=== PATIENT | female | born 2000 | race Caucasian/White ===

== ENCOUNTER 2022-08-10 13:53 | Outpatient (RCR) | payer BC, SELFPAY ==
[2022-08-07 14:30] LABS: Beta HCG Quantitative 53.19 mIU/ML
[2022-08-10 16:13] LABS: Beta HCG Quantitative 217.21 mIU/ML
== END 2022-11-05 23:59 | disposition home or self-care (01) ==
LOC: ANHLAB 13:53
PROVIDERS: Visit Provider Obstetrics & Gynecology
DX: Z36.89 Encounter for other specified antenatal screening (principal); O20.0 Threatened abortion; O36.0130 Maternal care for anti-D [Rh] antibodies, third trimester, not applicable or unspecified; Z3A.00 Weeks of gestation of pregnancy not specified
CPT/HCPCS: 36415; 84702; 85461; 86850; 86900; 86901

== ENCOUNTER 2023-11-27 13:54 | Emergency (ER) | payer BC, SELFPAY ==
[2023-11-27 14:02] VITALS: BP 128/84; PULSE 75; RESP 16; TEMP 37; O2SAT 100
--- NOTE | 2023-11-27 15:25 | ED.GENADULT ---
HPI - General Adult General Chief complaint: Upper Respiratory Infection Stated complaint: Headache/Sore Throat Source: patient Mode of arrival: ambulatory Limitations: no limitations History of Present Illness HPI narrative: Pt presents for evaluation of headache and sore throat. She states she has experienced a sore throat for two months. She visualized what she thought to be tonsil stones present. No recent sick contacts to her knowledge. She has not taken any medications to assist with her symptoms. She denies fever, chills, nausea, vomiting, cough or SOB. Over the past week she has experienced a headache between the parietal regions of her head. She states pain is constant, rated between 4-7/10. She cannot provide me with a descriptive term to the pain. She has not tried any therapies to assist with her symptoms. Denies any neurological symptoms. Related Data Allergies Allergy/AdvReac Type Severity Reaction Status Date / Time No Known Allergies Allergy Verified 11/27/23 14:35 Review of Systems Review of Systems: CONSTITUTIONAL: Denies fever, chills, or sweats. EYES: Denies visual changes, redness, or discharge. ENT: Reports sore throat. Denies rhinorrhea, congestion, or otalgia. CARDIOVASCULAR: Denies chest pain, palpitations, or edema. RESPIRATORY: Denies cough or dyspnea. GASTROINTESTINAL: Denies abdominal pain, nausea, vomiting, or diarrhea. GENITOURINARY: Denies dysuria or hematuria. SKIN: Denies rash or itching. MUSCULOSKELETAL: Denies back pain, joint pain, or myalgia. NEUROLOGIC:Reports headache. Denies numbness, dizziness, or weakness. PSYCHIATRIC: Denies anxiety or depression. [facility] Past Medical History Medical History No pertinent past medical history Surgical History Surgical History No pertinent past surgical history Family History Family History Mother Family history non-contributory Social History Social History Smoking status: Never smoker Substance use: never Living arrangements: with family Gender identity (if verbalized by the patient): Female Sexual Orientation (if Verbalized by the Patient): Straight or Heterosexual Spiritual care concerns: No Exam Narrative: GENERAL: Well-appearing, well-nourished, and in no acute distress. HEAD: Normocephalic, atraumatic. EYES: PERRLA and EOMI. ENT: Nares clear, no rhinorrhea or epistaxis. Mucous membranes moist. Oropharynx without tonsillar hypertrophy exudate or other lesions. Bilateral TMs pearly multani nonbulging NECK: Supple. No adenopathy or masses. No carotid bruits or JVD CHEST: Clear to auscultation. No respiratory distress. No wheezes rales or rhonchi HEART: Regular rate and rhythm. No murmur heard. Normal peripheral pulses. ABDOMEN: Soft, nontender, nondistended, normal active bowel sounds. EXTREMITIES: Normal range of motion. No edema. SKIN: Warm, dry, no rash. NEURO: No focal deficits. Alert and oriented x3. PSYCH: Normal mood and affect. Course Course Emergency Course: This is a 23-year-old female who presented for evaluation of headache and sore throat. COVID, influenza, strep were all negative. After to check her for mono. She declined. Through shared decision making, opted to proceed with abx therapy. Increase hydration. She is neurologically intact on exam. Declined therapy for headache. Advised she follow up with PCP to determine whether neuro imaging or other further workup necessary. Go to the ER for worsening symptoms. Pt in agreement with plan of care. Level of Care: Express Care Visit Vital Signs Vital signs: Vital Signs Temperature 37.0 C 11/27/23 14:02 Pulse Rate 75 11/27/23 14:02 Respiratory Rate 16 11/27/23 14:02 Blood Pressur
== END 2023-11-27 15:25 | disposition home or self-care (01) ==
PROVIDERS: Emergency Provider Nurse Practitioner
DX: J02.9 Acute pharyngitis, unspecified (principal); R51.9 Headache, unspecified; Z20.822 Contact with and (suspected) exposure to COVID-19
CPT/HCPCS: 87081; 87426; 87804; 87880; 99213; G0463

== ENCOUNTER 2025-07-13 13:46 | Emergency (ER) | payer SELFPAY ==
--- OUTSIDE RECORDS SUMMARY | 2025-07-13 13:49 | XMS_ITS | Clinical Summary ---
Author Organization [facility] [place] [address] Address [address] [place] [address] Care Team Providers Care Weight Shifter Name Role Phone No, Physician Unavailable No, Physician Primary Care Provider [phone] Allergies Active Allergy Reactions Criticality Noted Date Comments Nickel Medications ondansetron (ZOFRAN) 4 mg tablet Take 1 tablet (4 mg total) by mouth every 6 (six) hours. 12 tablet 8 Active Additional Information Patient not taking.Reported on 04/02/2025 VENTOLIN HFA 90 mcg/actuation inhaler TAKE 2 PUFFS BY MOUTH EVERY 4 HOURS NEEDED 3 8 Active ibuprofen (ibuprofen) 200 mg tab/cap Take by mouth every 6 (six) hours as needed for pain. Active ketorolac (TORADOL) 10 mg tablet Take 1 tablet (10 mg total) by mouth every 6 (six) hours as needed for pain 20 tablet 5 Active albuterol HFA (PROVENTIL HFA,VENTOLIN HFA,PROAIR HFA) 90 mcg/actuation inhalerIndicatio ns:Dyspnea, unspecified type Inhale 2 puffs every 4 (four) hours as needed for wheezing or shortness of breath 1 each 4 Active Additional Information Patient not taking.Reported on 04/02/2025 Active Problems Problem Noted Date Diagnosed Date Acne 06/30/2018 Gastroesophageal reflux disease 06/30/2018 Mild intermittent asthma 06/30/2018 Astigmatism of both eyes 06/23/2017 Exophoria 02/27/2016 Chronic daily headache 02/27/2016 Migraine headache 02/12/2016 Chest pain 02/07/2013 Bilateral hip pain 02/28/2010 Immunizations Immunization Administration Dates Next Due DTP 04/25/2003, 1,1999,10/13,1999 HPV, Unspecified 06/29/2013,04/25/2013 Hep A, Pediatric 11/20/2004 Hep B, Adolescent or Pediatric 05/20/2000,1999,1999 Hib (PRP-T) 05/06/2001, 0,1999,06/25 IPV 04/25/2003, 0,1999,06/25 Influenza, Unspecified 06/29/2013,2012,07/28/2011,06/28,09/08/2006,09/07/2003 MMR 04/25/2003,01/05/2001 Meningococcal Polysaccharide (Menomune) 05/21/2010 Pneumococcal Conjugate 7-Valent 05/06/2001,01/06 Tdap 02/11/2023,05/21/2010 Varicella 12/08/2006,01/05/2001 Surgical History Surgery Date Site/Laterality Comments MUSCLE BIOPSY Medical History Medical History Date Comments Asthma Gastric reflux Migraines Family History Medical History Relation Name Comments Arthritis Neg Hx Diabetes Neg Hx Heart disease Neg Hx Hypertension Neg Hx Lung disease Neg Hx Stroke Neg Hx Social History Tobacco Use Types Packs/Day Years Used Date Smoking Tobacco: Never Smokeless Tobacco: Never Alcohol Use Standard Drinks/Week Comments No 0 (1 standard drink = 0.6 oz pur e alcohol) Personal Safety Answer Date Recorded Have you ever been in or are you currently in a harmful physical or emotional relationship or is someone making you feel afraid or unsafe? Denies 04/05/2025 Comments No Sex and Gender Information Value Date Recorded Sex Assigned at Not on file Legal Sex Female 9:22 AM [employer] Gender Identity Not on file Sexual Orientation Not on file Obstetrics History Last Filed Vital Signs Vital Sign Reading Time Taken Comments Blood Pressure 135/82 04/05/2025 2:26 PM CDT Pulse 79 04/05/2025 2:26 PM CDT Temperature 37 C (98.6 F) 04/05/2025 2:26 PM CDT Respiratory Rate 18 04/05/2025 2:26 PM CDT Oxygen Saturation 100% 04/05/2025 2:26 PM CDT Inhaled Oxygen Concentration - - Weight 75.3 kg (166 lb) 04/05/2025 2:26 PM CDT Height 175.3 cm (5' 9) 04/05/2025 2:26 PM CDT Body Mass Index 24.51 04/05/2025 2:26 PM CDT Plan of Treatment Health Maintenance Due Date Last Done Comments Cervical Cancer Screening 1999 Depression Screening 1999 Hepatitis C Screening 1999 HPV Vaccines (3 - 2-dose series) 10/26/2013 06/29/2013, 04/25/2013 Regular Well Visit/Exam 18-64 2017 Influenza Vaccine (#1) 2025 3, 09/29/2012, 07/28/2011, Additional history exists Pneumococcal vaccine <65 (1 of 1 - PPSV23, PCV20, or PCV21) 09/07/2025 05/06/2001, 01/06/2001 Postponed from 2005 (Patient declined, but will receive in the future) DTaP/Tdap/Td Vaccine (8 - Td or Tdap) 02/11/2033 02/11/2023, 05/21/2010, 04/25/2003, Additional history exists Hepatitis B Screening Completed 05/20/2000 , 1999, 1999 Varicella Vaccines Completed 12/08/2006, 01/05/2001 Insurance [employer] [facility] PPO Care Teams Weight Shifter Relationship Specialty Start Date End Date No, Physician PCP - General 04/05/25 No, Physician 05/14/24
--- OUTSIDE RECORDS SUMMARY | 2025-07-13 13:49 | XMS_ITS | Data Portability ---
Author Organization [facility] Address [address] [address] Assessment Encounter Date Assessment Date Assessment LastModified by Organization Details LastModified Time 11/02/2022 11/02/2022 Patient is ___weeks . Discussed plan. Not available 11/02/2022 11:25:18 12/02/2022 12/02/2022 Patient is _20__weeks . Discussed plan. [email or web address] Not available 12/02/2022 15:44:30 12/30/2022 12/30/2022 Patient is 24___weeks . Discussed plan. Not available 12/30/2022 18:00:49 01/27/2023 01/27/2023 Patient is __28_weeks . Discussed plan. [email or web address] Not available 01/27/2023 16:34:21 Plan of Treatment Reminders Order Date Submit Date Provider Last Modified By Organization Details Last Modified Time Details Appointments None recorded. Lab afp (alpha-feto protein) panel, maternal screen, serum 2022 023 [facility] (Lab), [address], [place], [address], 3 17:34:14 Referral None recorded. Procedures None recorded. Surgeries None recorded. Imaging US, obstetric, 2nd or 3rd trimester 2022 023 [email or web address] [place], [address], [address], [place], [address], 3 00:14:40 US, obstetric, transvagina l 2022 023 [email or web address] [place], [address], [address], [place], [address], 3 00:14:40 Medication Orders None recorded. Patient TargetsNo targets recorded. Patient InstructionsNo instructions recorded. Reason for Referral None Reported. Results Created Date Observation Date Name Description Value Unit Range Abnormal Flag Note LastModifiedBy Organization Detail LastModifiedTime 10/07/19 23 10/07/2022 CBC W/DIF F WBC 8.8 10'3/ uL 3.6-10 .2 Not Available [facility] (Lab) [address], [place], [address], 10/08/2022 14:46:49 10/07/19 23 10/07/2022 CBC W/DIF F RBC 3.86 10'6/ uL (based on docume nted legal sex) 4.10-5 .30 low Not Available [facility] (Lab) [address], [place], [address], 10/08/2022 14:46:49 10/07/19 23 10/07/2022 CBC W/DIF F HGB 12.2 g/dL (based on docume nted legal sex) 11.9-1 5.8 Not Available [facility] (Lab) [address] [place], [address], 10/08/2022 14:46:49 10/07/19 23 10/07/2022 CBC W/DIF F HCT 34.9 % (based on docume nted legal sex) 37.4-4 8.3 low Not Available [facility] (Lab) [address] [place], [address], 10/08/2022 14:46:49 10/07/19 23 10/07/2022 CBC W/DIF F MCV 90.4 fL 82.0-9 9.0 Not Available [facility] (Lab) [address] [place], [address], 10/08/2022 14:46:49 10/07/19 23 10/07/2022 CBC W/DIF F MCH 31.6 pg 27.0-3 3.0 Not Available [facility] (Lab) [address], [place], [address], 10/08/2022 14:46:49 10/07/19 23 10/07/2022 CBC W/DIF F MCHC 35.0 g/dL 32.0-3 6.0 Not Available [facility] (Lab) [address], [place], [address], 10/08/2022 14:46:49 10/07/19 23 10/07/2022 CBC W/DIF F RDW 12.8 % 11.0-1 5.0 Not Available [facility] (Lab) [address], [place], [address], 10/08/2022 14:46:49 10/07/19 23 10/07/2022 CBC W/DIF F plt 255 10'3/ uL 150-45 0 Not Available [facility] (Lab) [address], [place], [address], 10/08/2022 14:46:49 10/07/19 23 10/07/2022 CBC W/DIF F MPV 10.7 fL 9.8-12 .7 Not Available [facility] (Lab) [address], [place], [address], 10/08/2022 14:46:49 10/07/19 23 10/07/2022 CBC W/DIF F NRBC's 0.0 % 0 Not Available [facility] (Lab) [address], [place], [address], 10/08/2022 14:46:49 10/07/19 23 10/07/2022 CBC W/DIF F absolute NRBCs 0.0 10'3/ uL 0 Not Available [facility] (Lab) [address] [facility], [place], [address], 10/08/2022 14:46:49 10/07/19 23 10/07/2022 CBC W/DIF F neutrophils 71.8 % 37.0-7 2.0 Not Available [facility] (Lab) [address] [facility], [place], [address], 10/08/2022 14:46:49 10/07/19 23 10/07/2022 CBC W/DIF F lymphocytes 21.7 % 16.0-4 8.0 Not Available [facility] (Lab) [address] [facility], [place], [address], 10/08/2022 14:46:49 10/07/19 23 10/07/2022 CBC W/DIF F monocytes 4.9 % 4.0-14 .0 Not Available [facility] (Lab) [address] [facility], [place], [address], 10/08/2022 14:46:49 10/07/19 23 10/07/2022 CBC W/DIF F eosinophils 0.5 % 0.0-9. 0 Not Available [facility] (Lab) [address] [facility], [place], [address], 10/08/2022 14:46:49 10/07/19 23 10/07/2022 CBC W/DIF F basophils 0.9 % 0.0-2. 0 Not Available [facility] (Lab) [address] [facility], [place], [address], 10/08/2022 14:46:49 10/07/19 23 10/07/2022 CBC W/DIF F immature granulocytes 0.2 % no define d refere nce range Not Available [facility] (Lab) [address] [facility], [place], [address], 10/08/2022 14:46:49 10/07/19 23 10/07/2022 CBC W/DIF F absolute neutrophils 6.3 10'3/ uL 1.1-6. 0 high Not Available [facility] (Lab) [address] [facility], [place], [address], 10/08/2022 14:46:49 10/07/19 23 10/07/2022 CBC W/DIF F absolute lymphocytes 1.9 10'3/ uL 0.7-3. 4 Not Available [facility] (Lab) [address] [facility], [place], [address], 10/08/2022 14:46:49 10/07/19 23 10/07/2022 CBC W/DIF F absolute monocytes 0.4 10'3/ uL 0.3-1. 0 Not Available [facility] (Lab) [address] [facility], [place], [address], 10/08/2022 14:46:49 10/07/19 23 10/07/2022 CBC W/DIF F absolute eosinophils 0.0 10'3/ uL 0.0-0. 6 Not Available [facility] (Lab) [address] [facility], [place], [address], 10/08/2022 14:46:49 10/07/19 23 10/07/2022 CBC W/DIF F absolute basophils 0.1 10'3/ uL 0.0-0. 1 Not Available [facility] (Lab) [address] [facility], [place], [address], 10/08/2022 14:46:49 10/07/19 23 10/07/2022 CBC W/DIF F absolute immature granulocytes 0.0 10'3/ uL 0.00-0 .10 2022 1:45 AM: P indic ates parti al resul ts on a panel have been relea sed. Addit ional resul ts will follo w. 2022 1:45 AM: This resul t has been final verif ied. No addit ional or valdivia ed resul ts are expec chelo. Not Available [facility] (Lab) [address] [facility], [place], [address], 10/08/2022 14:46:49 10/07/19 23 10/07/2022 HEMOG LOBIN A1C hemoglobin A1C 5.1 % 0-5.6 The Ameri can Diabe darren Assoc iatio n recom mends that a prima ry goal of thera py shoul d be a HBA1C of < 7% and that physi cians shoul d reeva luate the treat ment regim en in patie nts with HBA1C value s consi stent ly > 8%. <5.7% Erlinda l 5.7 - 6.4% Incre ased risk for diabe darren >=6.5 % Diagn ostic of diabe darren <7.0% Goal of thera py >8.0% Actio n sugge sted Not Available [facility] (Lab) [address] [facility], [place], [address], 10/08/2022 14:46:49 10/07/1910/07/2022 HIV 1/2 ANTIG EN/AN TIBOD Y, REFLE X CONFI RMATI ON HIV antigen/anti body Nonrea ctive nonrea ctive HIV-1 antig en and HIV-1 /HIV- 2 antib odies were not detec chelo. No labor atory evide nce of HIV infec tion. Not Available [facility] (Lab) [address] [place], [address], 10/08/2022 14:46:50 10/07/1910/07/2022 HEPAT ITIS B SURFA CE ANTIG EN hepatitis B surface antigen Non-re active non-re active This assay was perfo rmed using [employer] [facility] [facility] [employer] ratio n reage nts and test kits. Value s obtai dina with other assay metho ds or kits canno t be used inter valdivia eably . Not Available [facility] (Lab) [address] [facility], [place], [address], 10/08/2022 14:46:50 10/07/19 23 10/07/2022 HEPAT ITIS C ANTIB TOVA SCREE N, REFLE X TO CONFI RMATI ON hepatitis C antibody Non-re active non-re active Antib odies to HCV Not Detec chelo, does not exclu de the possi bilit y of expos ure to HCV. Not Available [facility] (Lab) [address], [place], [address], 10/08/2022 14:46:51 10/07/19 23 10/07/2022 TYPE/ RH/SC REEN ABO/Rh type O POS Not Available [facility] (Lab) [address], [place], [address], 10/08/2022 14:46:51 10/07/19 23 10/07/2022 TYPE/ RH/SC REEN antibody screen NEG Not Available [facility] (Lab) [address], [place], [address], 10/08/2022 14:46:51 10/07/19 23 10/07/2022 TYPE/ RH/SC REEN exp date 2022 23:59 Not Available [facility] (Lab) [address] [facility], [place], [address], 10/08/2022 14:46:51 10/07/19 23 10/07/2022 TSH, REFLE X FREE T4 TSH 2.19 uIU/m L 0.30-5 .33 Not Available [facility] (Lab) [address] [facility], [place], [address], 10/08/2022 14:46:52 10/07/19 23 10/07/2022 RUBEL LA IGG ANTIB TOVA, QUANT rubella antibodies, IgG Reacti ve reacti ve Not Available [facility] (Lab) [address] [facility], [place], [address], 10/08/2022 14:46:52 10/07/19 23 10/07/2022 RUBEL LA IGG ANTIB TOVA, QUANT rubella antibodies, IgG quant 18.8 IU/mL >=10 Non-r eacti ve (Non- Immun e) <10 IU/mL React rubin (Immu ne) > or = 10 IU/mL Not Available [facility] (Lab) [address] [facility], [place], [address], 10/08/2022 14:46:52 10/07/19 23 10/07/2022 RPR SCREE N/REF ADONAY TITER /FTA RPR screen Nonrea ctive nonrea ctive Not Available [facility] (Lab) [address] [facility], [place], [address], 10/08/2022 14:46:53 11/02/19 23 11/02/2022 CULTU RE: URINE result report SEE RESULT S BELOW Test: Cultu re: Urine Speci men Sourc e: Urine Voide d Speci men Type: Urine Speci men Date: 023 12:59 PM Resul t Date: 023 6:33 AM Resul t Statu s: Final resul t Abnor mal: No Resul ting Lab: [facility] [address] [facility] [address] Tel: CULTU RE ----- ----- ----- --- No growt h in 1 day (dete ction level of 10,00 0 colon ies / ml.) Not Available [facility] (Lab) [address] [facility], [place], [address], 11/04/2022 07:37:08 11/02/19 23 11/02/2022 AFP, MATER NAL SCREE N interpretati on Scree n negat rubin for open NTD. Not Available [facility] (Lab) [address] [facility], [place], [address], 11/04/2022 17:34:14 11/02/19 23 11/02/2022 AFP, MATER NAL SCREE N msafp risk open ntd 1 IN 3919 Not Available [facility] (Lab) [address] [facility], [place], [address], 11/04/2022 17:34:14 11/02/19 23 11/02/2022 AFP, MATER NAL SCREE N AFP, serum 44.5 NG/mL Not Available [facility] (Lab) [address] [place], [address], 11/04/2022 17:34:14 11/02/19 23 11/02/2022 AFP, MATER NAL SCREE N AFP MOM 1.37 Not Available [facility] (Lab) [address] [place], [address], 11/04/2022 17:34:14 11/02/19 23 11/02/2022 AFP, MATER NAL SCREE N comment This patie nt's DIMITRIS (jacklyn mated date of tamera herrera) was used to calcu late the gesta javad l age. The AFP test resul t indic ates that this patie nt is scree n negat rubin for open NTD. It shoul d be noted that erlinda l test resul ts can never guara ntee the of a erlinda l baby and that 2-3% of [facility] rns have some type of physi noé or menta l defec t, many of which are undet ectab le throu gh any known prena ricky diagn ostic techn ique. Not Available [facility] (Lab) [address] [place], [address], 11/04/2022 17:34:14 11/02/19 23 11/02/2022 AFP, MATER NAL SCREE N note This is a scree trinidad test, not a diagn ostic test. This risk asses sment repor t is based in part on demog raphi c data provi ded by the order ing physi bell. Pleas e notif y the labor atory promp tly if any data are incor rect. For deborah tance with recal culat ions, pleas e call your local [facility] at[facility] . For deborah tance with inter preta tion of these resul ts, pleas e conta ct your Local [facility] bud ic couns elor or call 104 -GENE INFO( [phone]). Inter preti ve Cutof fs Scree n Posit rubin for Open NTD: > or = 2.50 adjus chelo MOM > or = 1.90 adjus chelo MOM for insul in-de pende nt diabe tics > or = 4.00 adjus chelo MOM for twins > or = 3.50 adjus chelo MOM for twins insul in-de pende nt diabe tics > or = 4.50 adjus chelo MOM for tripl ets For addit ional infor sarath hollis e refer to http: //[facility] [employer].c om/fa q/FAQ 74v1 (This link is being provi ded for infor jorge bradley/ educa javad gastelum purpo ses only. ) Not Available [facility] (Lab) [address], [place], [address], 11/04/2022 17:34:14 11/02/19 23 11/02/2022 AFP, MATER NAL SCREE N gestational age 15.9 weeks Not Available [facility] (Lab) [address], [place], [address], 11/04/2022 17:34:14 11/02/19 23 11/02/2022 AFP, MATER NAL SCREE N weight quad 154 lbs Not Available [facility] (Lab) [address], [place], [address], 11/04/2022 17:34:14 11/02/19 23 11/02/2022 AFP, MATER NAL SCREE N patient's dimitris 2022 Not Available [facility] (Lab) [address], [place], [address], 11/04/2022 17:34:14 11/02/19 23 11/02/2022 AFP, MATER NAL SCREE N dimitris determined by ULTRAS OUND Not Available [facility] (Lab) [address], [place], [address], 11/04/2022 17:34:14 11/02/19 23 11/02/2022 AFP, MATER NAL SCREE N ethnic origin CAUCAS BOLA Not Available [facility] (Lab) [address], [place], [address], 11/04/2022 17:34:14 11/02/19 23 11/02/2022 AFP, MATER NAL SCREE N number of fetus(es)? 1 Not Available [facility] (Lab) [address], [place], [address], 11/04/2022 17:34:14 11/02/19 23 11/02/2022 AFP, MATER NAL SCREE N insulin dependent? NO Not Available [facility] (Lab) [address], [place], [address], 11/04/2022 17:34:14 11/02/19 23 11/02/2022 AFP, MATER NAL SCREE N repeat specimen NO Not Available [facility] (Lab) [address], [place], [address], 11/04/2022 17:34:14 11/02/19 23 11/02/2022 AFP, MATER NAL SCREE N hist neural tube defect NO Not Available [facility] (Lab) [address], [place], [address], 11/04/2022 17:34:14 11/02/19 23 11/02/2022 AFP, MATER NAL SCREE N history of down synd? NO Not Available [facility] (Lab) [address], [place], [address], 11/04/2022 17:34:14 11/02/19 23 11/02/2022 AFP, MATER NAL SCREE N donor egg NO Not Available [facility] (Lab) [address] [place], [address], 11/04/2022 17:34:14 11/02/19 23 11/02/2022 AFP, MATER NAL SCREE N donor age at egg retrieval NOT GIVEN Weigh t (lbs) : 154 Race: White Perfo rming Organ izati on Johannar jorge n: Site ID: [id number] Name: Javier Mina Tonimarcos ss: [id number] [place] [address] Dire tor: oJse Manuel mcfarland Not Available [facility] (Lab) [address], [place], [address], 11/04/2022 17:34:14 11/02/19 23 11/02/2022 drug scree n, urine Amphetamines : negati ve Not Available [place] [address], [place], [address], 11/02/2022 11:55:08 11/02/19 23 11/02/2022 drug scree n, urine Cannabinoids : negati ve Not Available [place] [address], [place], [address], 11/02/2022 11:55:08 11/02/19 23 11/02/2022 drug scree n, urine Cocaine: negati ve Not Available [place] [address], [place], [address], 11/02/2022 11:55:08 11/02/19 23 11/02/2022 drug scree n, urine Opiates: negati ve Not Available [place] [address], [place], [address], 11/02/2022 11:55:08 11/02/19 23 11/02/2022 drug scree n, urine Benzodiazepi medardo: negati ve Not Available [place] [address], [place], [address], 11/02/2022 11:55:08 01/28/20 23 01/27/2023 HEMAT OCRIT (HCT) HCT 35.4 % (based on docume nted legal sex) 37.4-4 8.3 low Not Available [facility] (Lab) [address], [place], [address], 01/28/2023 10:01:03 01/28/20 23 01/27/2023 HEMOG LOBIN (HGB) HGB 11.8 g/dL (based on docume nted legal sex) 11.9-1 5.8 low Not Available [facility] (Lab) [address] [facility], [place], [address], 01/28/2023 10:01:04 01/28/20 23 01/27/2023 GTT - GESTA JAVAD L SCREE N, ACOG OB glucose, 1 hour screen 108 mg/dL 70-139 Not Available [facility] (Lab) [address] [facility], [place], [address], 01/28/2023 10:01:04 01/28/20 23 01/27/2023 HIV 1/2 ANTIG EN/AN TIBOD Y, REFLE X CONFI RMATI ON HIV antigen/anti body Nonrea ctive nonrea ctive HIV-1 antig en and HIV-1 /HIV- 2 antib odies were not detec chelo. No labor atory evide nce of HIV infec tion. Not Available [facility] (Lab) [address] [facility], [place], [address], 01/28/2023 10:01:04 10/07/19 23 10/07/2022 US, obste tric, follo w-up No observ ation record ed. [email or web address] [address], [place], [address], 10/08/2022 12:46:01 10/07/19 23 10/07/2022 US, obste tric, nucha l trans lucen cy No observ ation record ed. [email or web address] [place] [address], [place], [address], 10/07/2022 17:58:00 12/03/19 23 12/02/2022 US, obste tric, 2nd or 3rd trime ster No observ ation record ed. [email or web address] [place] [address], [place], [address], 12/02/2022 17:33:03 12/03/19 23 12/02/2022 US, obste tric, trans vagin al No observ ation record ed. [email or web address] [place] [address], [place], [address], 12/02/2022 17:32:53 12/03/19 23 12/02/2022 US, obste tric, follo w-up No observ ation record ed. PIPO [address], [place], [address], 12/03/2022 20:05:41 12/03/19 23 12/02/2022 US, obste tric, 2nd or 3rd trime ster No observ ation record ed. [email or web address] [address] Eug[address], [place], [address], 12/03/2022 12:05:49 Result Notes None recorded. Problems Name Problem SNOMED Code Status Onset Date Resolution Date Notes Provider Name and Address Organization Details Recorded Time [id number] Completed 023 02/01/2023 Sally wilson [facility] 3 18:00:56 Problem Notes None recorded. Procedures Surgical History Date Name Laterality Status Provider Name and Address Organization Details Recorded Time 2 Date of Last Pap Smear completed Tania Gipson [facility] 12/02/2022 15:30:31 9 biopsy of muscle completed Farrah Posada [facility] 09/02/2022 16:24:48 Imaging Results None recorded. Procedure Notes None recorded. Medical Equipment None Reported. Allergies No known drug allergies Medications Name Sig Start Date Stop Date Status Note LastModified by Organization Details LastModified Time triamcinolo ne acetonide 0.1 % topical ointment 09/02 completed Not Available Not Available Not Available promethazin e 25 mg tablet Take 1 tablet every 4 hours by oral route. 2021 active Not Available Not Available Not Avai lable Vitamin active Not Available Not Available Not Available ID NOW COVID-19 Test Kit TEST DIRECTED TODAY active Not Available Not Available No t Available Vitals Date Recorded Body weight Provider Name an d Address Organization Details Last Updated DateTime 11/02/2022 06155.49339 g Prince Hall MD [address], [place], [address], [facility] 11/02/2022 11:42:44 Date Recorded Body height Body mass index (BMI) Systolic And Diastolic Provider Name and Address Organization Details Last Updated DateTime 11/02/2022 175.26 cm 22.7 kg/m2 124/80 mm[Hg] Farrah Posada [facility] 11/02/2022 11:25:28 Date Recorded Body height Body mass index (BMI) Body weight Systolic And Diastolic Provider Name and Address Organization Details Last Updated DateTime 12/02/2022 175.26 cm 23.2 kg/m2 55493.002 09 g 118/77 mm[Hg] Tania [facility] 12/02/2022 15:36:42 Date Recorded Body height Body mass index (BMI) Body weight Systolic And Diastolic Provider Name and Address Organization Details Last Updated DateTime 12/30/2022 175.26 cm 24.2 kg/m2 99892.148 68 g 125/77 mm[Hg] [facility] 12/30/2022 17:50:13 Date Recorded Body height Body mass index (BMI) Body weight Systolic And Diastolic Provider Name and Address Organization Details Last Updated DateTime 01/27/2023 175.26 cm 25.4 kg/m2 07105.887 64 g 120/82 mm[Hg] Taniamarilou Gipson [facility] 01/27/2023 16:30:18 Social History Question Answer Notes LastModified by Organizat ion Details LastModified Time Tobacco Smoking Status Never Smoker [facility]арина [facility] 01/27/2023 16:16:28 Do You Have An Advance Directive? No Information n ot available 09/02/2022 If You Are , What Was Your Level Of Alcohol Consumption Prior To ? Occasional [email or web address] Information not available 01/27/2023 Are You Blind Or Do You Have Difficulty Seeing? No Information n ot available 09/02/2022 What Is Your Level Of Caffeine Consumption? Moderate Information not available 10/07/2022 How Much Tobacco Do You Chew? None Information not available 09/02/2022 In The 14 Days Before Symptom Onset, Have You Had Close Contact With A Laboratory-confirm ed COVID-19 While That Case Was Ill? No Information n ot available 09/02/2022 In The 14 Days Before Symptom Onset, Have You Had Close Contact With A Person Who Is Under Investigation For COVID-19 While That Person Was Ill? No Information not available 09/02/2022 Have You Been To An Area Known To Be High Risk For COVID-19? No Information not available 09/02/2022 Are You Deaf Or Do You Have Serious Difficulty Hearing? No Information not available 09/02/2022 What Type Of Diet Are You Following? REGULAR Information n ot available 09/02/2022 What Is The Highest Grade Or Level Of School You Have Completed Or The Highest Degree You Have Received? [id number] Information not available 09/02/2022 Are There Any Guns Present In Your Home? No Information not available 09/02/2022 Do You Use Protection During Sex? No Information not available 09/02/2022 Do You Use Your Seat Belt Or Car Seat Routinely? Yes Information not available 09/02/2022 Do You Have Smoke And Carbon Monoxide Detectors In Your Home? Yes Information not available 09/02/2022 How Much Tobacco Do You Smoke? No Information not available 09/02/2022 Do You Use Sunscreen Routinely? Yes Information not available 10/07/2022 Have You Used IV Drugs? No Information not available 09/02/2022 Do You Have Difficulty Walking Or Climbing Stairs? No [email or web address] Information not available 01/27/2023 Sex: Female Functional Status Question Answer Note LastModified by Organizat ion Details LastModified Time Do you use any illicit or recreational drugs? No Information not available 09/02/2022 What is your level of alcohol consumption? None Information not available 09/02/2022 Are you able to walk independently without assistance or assistive devices? [email or web address] Information not available 09/02/2022 Are you able to care for yourself independently? 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 No [email or web address] Information not available 01/27/2023 What is your exercise level? Occasional Information not available 09/02/2022 Mental Status Question Answer Note LastModified by Organization D etails LastModified Time Do you feel stressed (tense, restless, nervous, or anxious, or unable to sleep at night)? [id number] Information not available 09/02/2022 Family History Relationship Description Onset Age of this Age Resolved Age Notes LastModified by Organization Details LastModified Time Maternal Grandmother Heart disease Not available 2021 16:12:30 Maternal Grandmother Asthma Not available 03/2022 16:12:30 Medical History Condition Response Allergies (Food, seasonal, environmental ) Y Other N Breast Cancer N Drug/Latex Allergies/Reactions N Blood Transfusion N Dermatologic Disorders N Lung Disease N Defects or Inherited Disease N Breast Problem N Gestational Diabetes N Hematologic disorders N Anesthesia Complications N History of STI N Deep Vein Thrombosis N Polycystic ovary syndrome N Anxiety Disorder N Autoimmune disease N Arthritis N Infertility N Polyps N Acid Reflux (GERD) N History of abnormal pap Y Cancer N Stroke N Varicosities N Neurologic/Epilepsy N Endometriosis N High Cholesterol N Headaches N Fibromyalgia N Kidney Disease N Heart Problems N Kidney or Bladder Problems N Thyroid Problems N GI Problems N Eating Disorder N Anemia N Art (IVF or FET) N Psychiatric Illness N Ovarian Cancer N Diabetes N Pulmonary (TB, Asthma) N Hepatitis/Liver Disease N No Past Medical History N Eczema N Urinary Tract Infection N Abuse/Domestic Violence N Asthma Y Trauma/Violence N Depression/ depression N Heart Disease N Pre-Eclampsia N Hypertension N Osteoporosis N Thrombophilias N Gynecological History Statement/Question Response Date of LMP 07/14/2022 On BCP's at Conception? N N Was last menstrual period normal Y STIs/STDs N HPV Vaccine N Duration of Flow (days) 5 Current Control Method Frequency of Cycle (Q days) 24 Sexually Active? Y Age of first menstrual cycle 12 Date of Last Pap Smear 09/02/2022 Sexual Problems? N LMP Definite N Obstetrics History GPAL:G 1 P 0 0 0 0 Past Encounters Encounter ID Performer Location Encounter Start Date Encounter Closed Date Diagnosis/Indication Diagnosis SNOMED-CT Code Diagnosis ICD10 Code Diagnosis IMO Codes Diagnosis Note [id number] Prince Hall MD [place] [address],[place] [address] 09/02/2022 15:34:12 09/04/2022 03:51:24 [id number] Prince Hall MD [place] [address],[place] [address] 09/02/2022 15:34:46 09/02/2022 18:25:48 Nausea and vomiting 89462808 R11.2 Amenorrhea 15457511 N91. 2 this patient is a 22-year-ol d female presents for amenorrhea . She has positive test. An ultrasound revealed today revealed a 7 week IUP. It is consistent with her last menstrual period dating. We discussed care. We discussed genetic screening. Discussed the 12 week ultrasound . We talked about precaution s in that included exercise, diet, medication s. She will return in 5 weeks for the 12 week ultrasound and the start of her care. Spent over 20 minutes face-to-fa ce. More than 50% was counseling . [id number] Prince Hall MD [place] [address],[place] [address] 10/07/2022 13:58:02 10/07/2022 15:02:14 screening [id number] Z36.82 [id number] Prince Hall MD [place] [address],[place] [address] 10/07/2022 13:58:21 10/07/2022 15:42:23 Routine care [id number] Z34.01 [id number] Prince Hall MD [place] [address],[place] [address] 11/02/2022 11:18:49 11/02/2022 11:54:35 screening [id number] Z36.89 Routine an tenatal care 092046330 Z34.01 [id number] Prince Hall MD [place] [address],[place] [address] 12/02/2022 14:19:49 12/02/2022 15:24:59 screening for malformation [id number] Z36.3 [id number] Cookie Zaragoza [facility] [address],[place] [address] 12/02/2022 14:21:06 12/02/2022 16:27:30 Routine care 192215908 Z34.92 [id number] Cookie Zaragoza [facility] [address],[place] [address] 12/30/2022 17:17:31 12/30/2022 18:18:14 Routine care [id number] Z34.92 [id number] Cookie Zaragoza [facility] [address],[place] [address] 01/27/2023 16:16:24 01/27/2023 16:52:50 Routine care [id number] Z34.92 Health Concerns Section Related Observation LastModified by Organization Detai ls LastModified Time None Recorded Concern Status LastModified by Organization Details LastModified Time None Recorded Advance Directives Directive N: Payers Insurance Date Sequence Insurance Name Policy Number Policy Smyth Covered Member ID Smyth Member ID Guarantor Name 02/10/2023 1 [place] [id number] Angi Taylor [id number] Angi Taylor 02/10/2023 2 [employer] (PP[place]) [id number] Angi Taylor [id number] Angi Taylor 01/27/2023 1 C[employer] [id number] Angi Taylor [id number] Angi Taylor 01/27/2023 1 [employer] (PP[place]) [id number] Angi Taylor [id number] Angi Taylor 01/27/2023 1 *SELF PAY* Quintin Taylor 09/13/2023 PAYMENT PLAN Angi Taylor Notes Date Note Type Note Provider Name and Address Organization Details Recorded Time 11/02/2022 text/html Generic HPI TemplateReported by Patient Prince Hall MD [address], [place], [address], [facility] 11/02/2022 11:48:06 12/02/2022 text/html Generic HPI TemplateReported by Patient Cookie Zaragoza CNM [address], [place], [address], [facility] 12/02/2022 15:54:01 12/30/2022 text/html Generic HPI TemplateReported by Patient Cookie Zaragoza CNM [address], [place], [address], [facility] 12/30/2022 18:02:08 01/27/2023 text/html Generic HPI TemplateReported by Patient Cookie Zaragoza CNM [address], [place], [address], [facility] 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 Status 10/07/19 23 1 O Positive 151 CLOSED Fetus Data First Name Last Name Admitted to NICU Weight (g) Sex Living Outcome Pediatric Complications Fetus ID Race Codes Race Delivery Type [id number] Dimitris Calculation Initial Dimitris Date Initial Exam Date Initial Exam Provider Initial Ultrasound Date Last Menstrual Period Date Ultra Sound Weeks Gestation 04/20/2023 10/07/2022 09/02/2022 07/14/2022 7 Eighteen To Twenty Week Dimitris Update Ultra Sound Date Fundal Height At Umbil Quickening Date Ultra Sound Latest Weeks Gestation Final Dimitris Confirmed By Final Dimitris Confirmed Date Final Dimitris Date Ultra Sound Latest Days Gestation 0 [email or web address] 10/07/2022 04/20/20 23 0 Pre- Flowsheet Flowsheet Date 10/07/2022 Ambriz Score Blood Edema Fundus Height Fundus Units Glucose Ketones Leukocytes Nitrite Labor Signs Protein Cervic Dilation Cervic Effacement Cervic Station 12 Type Weight in lbs Pre/Post Dialysis Refused Weight 149.257320391086 BP Diastolic BP Location Tested BP Systolic BP Type 73 R arm 116 sitting Fetus Heart Rate Present A 159 Fetus Movement Comments This patient is a 22-year-ol d 112 weeks gestation who presents for initial care. She is not vaccinated for COVID, she has been infected. She was given recommendations on flu vaccines Tdap. Talked about care in detail. She is getting genetic screening today. Her ultrasound today was all they normal nuchal translucency and a nasal bone being present. To begin routine care Flowsheet Date 11/02/2022 Ambriz Score Blood Edema Fundus Height Fundus Units Glucose Ketones Leukocytes Nitrite Labor Signs Protein Cervic Dilation Cervic Effacement Cervic Station Type Weight in lbs Pre/Post Dialysis Refused Weight 154.187591300021 BP Diastolic BP Location Tested BP Systolic BP Type 80 R arm 124 sitting Fetus Heart Rate Present A 156 Fetus Movement Comments no complaints, no problems, nonspecific pain on her left side. Alpha fetoprotein today. Flowsheet Date 12/02/2022 Ambriz Score Blood Edema Fundus Height Fundus Units Glucose Ketones Leukocytes Nitrite Labor Signs Protein Cervic Dilation Cervic Effacement Cervic Station Type Weight in lbs Pre/Post Dialysis Refused BP Diastolic BP Location Tested BP Systolic BP Type Fetus Heart Rate Present Fetus Movement Comments Flowsheet Date 12/02/2022 Ambriz Score Blood Edema Fundus Height Fundus Units Glucose Ketones Leukocytes Nitrite Labor Signs Protein Cervic Dilation Cervic Effacement Cervic Station neg none none trace Type Weight in lbs Pre/Post Dialysis Refused Weight 157.269573607352 BP Diastolic BP Location Tested BP Systolic BP Type 77 118 Fetus Heart Rate Present Fetus Movement A Yes Comments patient states that having s ome left side pain. 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 Flowsheet Date 01/27/2023 Ambriz Score Blood Edema Fundus Height Fundus Units Glucose Ketones Leukocytes Nitrite Labor Signs Protein Cervic Dilation Cervic Effacement Cervic Station neg none none trace Type Weight in lbs Pre/Post Dialysis Refused Weight 172.951491277876 BP Diastolic BP Location Tested BP Systolic BP Type 82 120 Fetus Heart Rate Present Fetus Movement A Yes Comments patient is having some contr actions and pain. discussed labor precautions, ok for tdap, doing gct today, reviewed third trimester education, f/u 2 weeks Menstrual History Last Menstrual Date Menses Monthly On Bcp Conception Prior Menses Frequency Hcg Plus Date Menarche Onset Age 1007/14/2022 Genetic Screening And Infection History Question Response Note Mental Retardation/Autism false Patient's Age Will Be 35 Years Or Older At Estim ated Date of Delivery false Thalassemia (Mongolian, Luxembourger, Mediterranean, Or Background): MCV < 80 false Neural Tube Defect (Meningomyelocele, Spina Bifi da, Or Anencephaly) false Congenital Heart Defect false Down Syndrome false Adolfo-Sachs (eg, Jainism, Cajun, Maltese-Kuwaiti) f alse Musa Disease false Sickle Cell Disease Or Trait () false Hemophilia Or Other Blood Disorders false Muscular Dystrophy false Cystic Fibrosis false Luke's Chorea false Intellectual Disability/Autism false If Yes, Was Person Tested For Fragile X? false Other Inherited Genetic Or Chromosomal Disorder false Maternal Metabolic Disorder (eg, Type 1 Diabetes , PKU) false Patient Or Baby's Father Had A Child With Defects Not Listed Above false Recurrent Loss, Or A Stillbirth false Medications (including Suppl ements, Vitamins, Herbs, OTC Drugs), Illicit/Recreational Drugs, Alcohol false If Yes, Agent(s) And Strength/Dosage false Any Other Genetic History false Live With Someone With TB Or Exposed To TB false Patient Or Partner Has History Of Genital Herpes false Rash Or Viral Illness Since Last Menstrual Perio d false History Of STD, Gonorrhea, Chlamydia, HPV, Syphi lis false Other Infection History false History of HIV false History of Hepatitis false Prior GBS-infected child false Hemoglobinopathy Or Carrier false Other Structural Defect false Recent Travel History Outside of Country false Delivery Information Delivery Date Delivery Type Labor Anesthesia Weeks Gestation Incision Type Labor Labor Length Hrs Delivered By Post Complications Tubal Sterilization Discharge Date Comments Discharge Information Feeding Method Contraceptive Method Maternal HG B and HCT Levels
[2025-07-13 13:55] VITALS: BP 125/78; PULSE 75; RESP 18; TEMP 36.5; O2SAT 100
--- NOTE | 2025-07-13 13:59 | ED.DENTAL ---
HPI - Dental/Oral General Chief complaint: Dental/Oral Stated complaint: Toothache Time Seen by Provider: 07/13/25 13:54 Source: patient and RN notes reviewed Mode of arrival: ambulatory Limitations: no limitations History of Present Illness HPI Narrative: 25-year-old female patient presents today complaining of a 2 day history of right lower dental pain that has worsened today. She is now experiencing pain in the right upper tooth as well. States the lower tooth has been chipped for approximately 3 years but she had never had any difficulties with it until now. She currently rates her pain 5/10 and has tried Tylenol with some improvement. Denies fever, shortness of breath, difficulty swallowing or opening her mouth. She called her dentist and has an appointment in 2 weeks. Related Data Allergies Allergy/AdvReac Type Severity Reaction Status Date / Time nickel Allergy Unknown Unknown Verified 07/13/25 13:54 [facility] Past Medical History Medical History No pertinent past medical history Surgical History Surgical History No pertinent past surgical history Family History Family History Mother Family history non-contributory Social History Social History Smoking status: Never smoker Substance use: never Living arrangements: with family Gender identity (if verbalized by the patient): Female Sexual Orientation (if Verbalized by the Patient): Straight or Heterosexual Spiritual care concerns: No Comments At time of signature, I have reviewed and agree with nursing past medical, surgical, social and family history unless otherwise noted. Please see nursing chart for further information. There is no relevant family history pertinent to the presenting complaint Exam Narrative: GENERAL: Well-appearing, well-nourished, and in no acute distress. HEAD: Normocephalic, atraumatic. EYES: EOMI. No redness or drainage. Conjunctivae normal. ENT: Mucous membranes pink and moist. No facial swelling. Medial portion of tooth 30 is missing and part of tooth is black in color. Surrounding gingiva is normal. Tooth 3 has a large metal filling in the center. Surrounding gingiva is normal. Both of these teeth are tender to palpation. No trismus. No swelling or redness of the neck. NECK: Normal AROM. Supple. No lymphadenopathy. CHEST: No respiratory distress. EXTREMITIES: Normal range of motion. No edema. SKIN: Warm, dry, no rash. Capillary refill normal. Normal skin turgor. NEURO: No focal deficits. Alert and oriented x3. Gait steady. PSYCH: Normal affect. No signs of depression or anxiety. Course Course Level of Care: Express Care Visit Vital Signs Vital signs: Vital Signs Temperature 97.7 F 07/13/25 13:55 Pulse Rate 75 07/13/25 13:55 Respiratory Rate 18 07/13/25 13:55 Blood Pressure 125/78 07/13/25 13:55 Pulse Oximetry 100 07/13/25 13:55 Oxygen Delivery Room Air 07/13/25 13:55 Temperature 97.7 F 07/13/25 13:55 Pulse Rate 75 07/13/25 13:55 Respiratory Rate 18 07/13/25 13:55 Blood Pressure 125/78 07/13/25 13:55 Pulse Oximetry 100 07/13/25 13:55 Oxygen Delivery Room Air 07/13/25 13:55 Reviewed MDM - Dental/Oral MDM Narrative Medical decision making narrative: 25-year-old female patient presents today complaining of a 2 day history of right lower dental pain that has worsened today. She is now experiencing pain in the right upper tooth as well. States the lower tooth has been chipped for approximately 3 years but she had never had any difficulties with it until now. She currently rates her pain 5/10 and has tried Tylenol with some improvement. Upon exam, Medial portion of tooth 30 is missing and part of tooth is black in color. Surrounding gingiva is normal. Tooth 3 has a large metal filling in the center. Surrounding gingiva is normal. Both of these teeth are tender to palpation. No trismus. Patient will be started on a course of amoxicillin for presumed infection. She has appointment with her dentist in 2 weeks. No red flag symptoms that would warrant transfer to the emergency department at this time. Patient agrees with plan. Vital signs stable. Anticipatory guidance and ED precautions given. Critical Care Time Critical Care Time Critical Care Time: No Discharge Plan Discharge Clinical Impression: Toothache Patient Disposition: Home Condition: Stable Instructions: Antibiotic Form, Dental Abscess (ED) Additional Instructions: Please take the amoxicillin as prescribed until gone. Continue Tylenol or ibuprofen for pain. Follow-up with your dentist as scheduled. If symptoms worsen to include shortness of breath, difficulty swallowing, difficulty opening your mouth, development of fever greater than 100.3, significant facial swelling, please go to the ER immediately for further evaluation. Patient Language: Latvian Prescriptions: New amoxicillin 875 mg tablet 875 mg PO Q12H 10 Days Qty: 20 0RF Follow-up/Referrals: PHYSICIAN,SENIOR PORTFOLIO ANALYST [Primary Care Provider, Internal Medicine] Time of Disposition: 14:04
== END 2025-07-13 14:06 | disposition home or self-care (01) ==
PROVIDERS: Emergency Provider Nurse Practitioner
DX: K08.89 Other specified disorders of teeth and supporting structures (principal)
CPT/HCPCS: 99213; G0463